=== PATIENT | male | born 1960 | race Caucasian/White ===

== ENCOUNTER 2018-10-11 06:22 | Day surgery (SDC) | payer BC ==
[2018-10-06 18:44] VITALS: BMI 31.8
[~2018-10-11 06:22] MED LIST: LACTATED RINGERS 1,000 ML IV SCH; LIDOCAINE 1% 20 ML VIAL (10MG/ML) FOR IV START INTRADERMA PRN
[2018-10-11] MEDS ORDERED: LACTATED RINGERS 1,000 ML IV ONE (06:38)
[2018-10-11 06:50] VITALS: TEMP 978
[2018-10-11] MEDS ORDERED: PROPOFOL 10 MG/ML 20 ML VIAL IV ONE (07:09)
[2018-10-11 07:10] LABS: Glucose,Whole Blood 144 mg/dL (75-99)
[2018-10-11 07:34] VITALS: PULSE 64; RESP 18
--- NOTE | 2018-10-11 07:39 | P.PCN ---
Date of Procedure: 10/11/18 Procedure(s) Performed: Procedure: Total colonoscopy. Preoperative diagnosis: Screening for neoplasia, patient has history of polyps. Postoperative diagnosis: Sigmoid diverticulosis with no evidence of acute diverticulitis, strictures, polyps or cancer. Preparation: HalfLytely prep. Sedation: Was provided by anesthesia. Brief clinical history: The patient is a 58-year-old male who is scheduled for this evaluation for screening for neoplasia age being his risk factor as well as history of polyps. He had his first exam at age 50 and he had a repeat exam 3 years later. This would be his surveillance because of history of polyps. He has no abdominal complaints, bleeding or anemia. Procedure: With the patient on his left lateral decubitus position and after informed consent and adequate sedation, the perianal area was inspected and it did not show any fissures or fistulas. There were no masses felt on digital rectal examination. The Olympus CFH 190L video colonoscope was then inserted in the rectum in the usual fashion and advanced to the cecum. There were several diverticular orifices seen scattered in the sigmoid with no evidence of acute diverticulitis or strictures. No polyps or tumors were seen. The mucosa appeared healthy. I retroflexed the endoscope in the rectum before the endoscope was withdrawn. The patient tolerated the procedure well. Plan: The patient was reassured. Discussed dietary measures. He will follow up with you as planned and I recommended repeat exam in 5 years.
[2018-10-11 08:13] VITALS: BP 135/90
== END 2018-10-11 08:16 | disposition home or self-care (01) ==
LOC: ORWHC2ENDO 06:22
DX: Z12.11 Encounter for screening for malignant neoplasm of colon (principal); K57.30 Diverticulosis of large intestine without perforation or abscess without bleeding; Z86.010 Personal history of colon polyps; E11.9 Type 2 diabetes mellitus without complications; I10 Essential (primary) hypertension; M10.9 Gout, unspecified; E78.5 Hyperlipidemia, unspecified; K21.9 Gastro-esophageal reflux disease without esophagitis; Z79.84 Long term (current) use of oral hypoglycemic drugs; Z79.82 Long term (current) use of aspirin; Z79.899 Other long term (current) drug therapy
CPT/HCPCS: J2704; G0105

== ENCOUNTER 2019-08-04 07:02 | Emergency (ER) | payer BC ==
[2019-08-04 07:08] VITALS: TEMP 97.9
[2019-08-04] MEDS ORDERED: SODIUM CHLORIDE 0.9% 1,000 ML IV STA (07:12)
[2019-08-04] MEDS ORDERED: KETOROLAC 30 MG/ML 1 ML VIAL IVP STA (07:12)
[2019-08-04] MEDS ORDERED: HYDROmorphone 0.5 MG/0.5 ML SYRINGE IVP STA (07:12)
[2019-08-04] MEDS ORDERED: ONDANSETRON 4 MG/2 ML VIAL IVP STA (07:12)
--- NOTE | 2019-08-04 07:15 | ED ---
Abdominal Pain HPI - General Chief Complaint: Abdominal Pain Stated Complaint: Poss Kidney Stone Time Seen by Provider: 08/04/19 07:08 Source: patient, RN notes reviewed Mode of arrival: ambulatory Limitations: no limitations - History of Present Illness Initial Comments: 58-year-old male presents emergency Department chief complaint left flank pain, hematuria. Patient states that symptoms started last day or so. He states he felt that he just pulled a muscle in his back noticing of blood in his urine yesterday. Patient states he had increasing pain throughout the night with increasing vomiting. Patient states she's had history kidney stones in the past. Patient reports no fevers or chills. Patient denies any diarrhea, constipation, chest pain or shortness breath. - Related Data Home Medications Medication Instructions Recorded Confirmed Gemfibrozil [Lopid] 600 mg PO HS 01/22/17 10/11/18 Allopurinol [Zyloprim] 300 mg PO HS 10/06/18 10/11/18 Aspirin [Adult Low Dose Aspirin EC] 81 mg PO HS 10/06/18 10/11/18 Atorvastatin [Lipitor] 20 mg PO HS 10/06/18 10/11/18 Lisinopril [Zestril] 10 mg PO HS 10/06/18 10/11/18 Multivit-Min/Folic/Vit K/Lycop 1 each PO HS 10/06/18 10/06/18 [Men's Multivitamin Tablet] Omega3/Dha/Epa/Fish Oil/Vit D3 1 each PO HS 10/06/18 10/06/18 [Fish Oil-Vit D3 Softgel] metFORMIN HCL [Glucophage] 1,000 mg PO HS 10/06/18 10/11/18 Previous Rx's Medication Instructions Recorded Ketorolac [Toradol] 10 mg PO Q8HR #15 tab 08/04/19 Ondansetron Odt [Zofran Odt] 4 mg PO Q8HR PRN #10 tab 08/04/19 Tamsulosin [Flomax] 0.4 mg PO DAILY #7 cap 08/04/19 Allergies Allergy/AdvReac Type Severity Reaction Status Date / Time No Known Allergies Allergy Verified 10/11/18 07:05 Review of Systems ROS Statement: Those systems with pertinent positive or pertinent negative responses have been documented in the HPI. ROS Other: All systems not noted in ROS Statement are negative. Past Medical History Past Medical History: Diabetes Mellitus, Hyperlipidemia, Hypertension Additional Past Medical History / Comment(s): GOUT, HX OF COLON POLYPS, kidney stones History of Any Multi-Drug Resistant Organisms: None Reported Past Surgical History: Back Surgery, Orthopedic Surgery Additional Past Surgical History / Comment(s): ARTHROSCOPY AUGUSTIN KNEES AND WRIST., COLONOSCOPIES Past Anesthesia/Blood Transfusion Reactions: No Reported Reaction Past Psychological History: No Psychological Hx Reported Smoking Status: Never smoker Past Alcohol Use History: Occasional Past Drug Use History: None Reported - Past Family History Father Family Medical History: Cancer Additional Family Medical History / Comment(s): LEUKEMIA General Exam Limitations: no limitations General appearance: alert, in no apparent distress Head exam: Present: atraumatic, normocephalic, normal inspection Eye exam: Present: normal appearance, PERRL, EOMI. Absent: scleral icterus, conjunctival injection, periorbital swelling Neck exam: Present: normal inspection, full ROM. Absent: tenderness, meningismus, lymphadenopathy Respiratory exam: Present: normal lung sounds bilaterally. Absent: respiratory distress, wheezes, rales, rhonchi, stridor Cardiovascular Exam: Present: regular rate, normal rhythm, normal heart sounds. Absent: systolic murmur, diastolic murmur, rubs, gallop, clicks GI/Abdominal exam: Present: soft, normal bowel sounds. Absent: distended, tenderness, guarding, rebound, rigid Back exam: Present: full ROM, CVA tenderness (L). Absent: tenderness, CVA tenderness (R) Neurological exam: Present: alert, oriented X3, CN II-XII intact Skin exam: Present: warm, dry, intact, normal color. Absent: rash Course Vital Signs 08/04/19 07:05 Temperature 97.9 F Pulse Rate 72 Respiratory 18 Rate Blood Pressure 167/107 O2 Sat by Pulse 98 Oximetry - Reevaluation(s) Reevaluation #1: 08/04/19 08:23 Patient feels greatly improved after pain medication updated on results. Medical Decision Making - Medical Decision Making Patient's x-ray shows large stone left renal region, labs reveal no acute findings other than hematuria on urinalysis. Patient pain is improved patient be discharged with pain medication, nausea meds, Flomax and follow-up with his urology Dr. Downey - Lab Data Result diagrams: 08/04/19 07:32 08/04/19 07:32 Lab Results 08/04/19 08/04/19 08/04/19 Range/Units 07:32 07:32 07:32 WBC 5.8 (3.8-10.6) k/uL RBC 4.87 (4.30-5.90) m/uL Hgb 15.8 (13.0-17.5) gm/dL Hct 44.8 (39.0-53.0) % MCV 92.0 (80.0-100.0) fL MCH 32.4 (25.0-35.0) pg MCHC 35.2 (31.0-37.0) g/dL RDW 12.3 (11.5-15.5) % Plt Count 250 (150-450) k/uL Neutrophils % 59 % Lymphocytes % 30 % Monocytes % 6 % Eosinophils % 2 % Basophils % 1 % Neutrophils # 3.4 (1.3-7.7) k/uL Lymphocytes # 1.7 (1.0-4.8) k/uL Monocytes # 0.3 (0-1.0) k/uL Eosinophils # 0.1 (0-0.7) k/uL Basophils # 0.0 (0-0.2) k/uL Sodium 139 (137-145) mmol/L Potassium 4.8 (3.5-5.1) mmol/L Chloride 106 (98-107) mmol/L Carbon Dioxide 22 (22-30) mmol/L Anion Gap 11 mmol/L BUN 21 H (9-20) mg/dL Creatinine 0.91 (0.66-1.25) mg/dL Est GFR (CKD-EPI)AfAm >90 (>60 ml/min/1.73 sqM) Est GFR (CKD-EPI)NonAf >90 (>60 ml/min/1.73 sqM) Glucose 210 H (74-99) mg/dL Calcium 9.8 (8.4-10.2) mg/dL Total Bilirubin 0.6 (0.2-1.3) mg/dL AST 32 (17-59) U/L ALT 56 (21-72) U/L Alkaline Phosphatase 84 (38-126) U/L Total Protein 6.7 (6.3-8.2) g/dL Albumin 4.3 (3.5-5.0) g/dL Amylase 58 (30-110) U/L Lipase 87 (23-300) U/L Urine Color Yellow Urine Appearance Clear (Clear) Urine pH 6.0 (5.0-8.0) Ur Specific Hester 1.020 (1.001-1.035) Urine Protein Negative (Negative) Urine Glucose (UA) Negative (Negative) Urine Ketones Negative (Negative) Urine Blood Moderate H (Negative) Urine Nitrite Negative (Negative) Urine Bilirubin Negative (Negative) Urine Urobilinogen <2.0 (<2.0) mg/dL Ur Leukocyte Esterase Negative (Negative) Urine RBC 27 H (0-5) /hpf Urine WBC 2 (0-5) /hpf Ur Squamous Epith Cells <1 (0-4) /hpf Urine Bacteria Rare H (None) /hpf Urine Mucus Rare H (None) /hpf Disposition Clinical Impression: Kidney stone on left side, Hematuria Disposition: HOME SELF-CARE Condition: Stable Instructions (If sedation given, give patient instructions): Kidney Stones (ED) Additional Instructions: Please return to the Emergency Department if symptoms worsen or any other concerns. Prescriptions: Tamsulosin [Flomax] 0.4 mg PO DAILY #7 cap Ketorolac [Toradol] 10 mg PO Q8HR #15 tab Ondansetron Odt [Zofran Odt] 4 mg PO Q8HR PRN #10 tab PRN Reason: Nausea Is patient prescribed a controlled substance at d/c from ED?: No Referrals: Chase Cavanaugh DO [Primary Care Provider] - 1-2 days Woodrow Downey MD [STAFF PHYSICIAN] - 1-2 days Time of Disposition: 08:25
[2019-08-04 07:58] LABS: Appearance,Urine Clear (Clear); Bacteria,Urine Rare /hpf; Bilirubin,Urine Negative (Negative); Blood,Urine Moderate (Negative); Color,Urine Yellow; Glucose,Urine (UA) Negative (Negative); Ketones,Urine Negative (Negative); Leukocyte Esterase,Urine Negative (Negative); Mucus,Urine Rare /hpf; Nitrite,Urine Negative (Negative); Protein,Urine Negative (Negative); RBC,Urine 27 /hpf (0-5); Squamous Epithelial Cell,Urine <1 /hpf (0-4); Urobilinogen,Urine <2.0 mg/dL (<2.0)
[2019-08-04 08:00] LABS: Basophils % (A) 1 %; Eosinophils # (A) 0.1 k/uL (0-0.7); Eosinophils % (A) 2 %; HCT 44.8 % (39.0-53.0); HGB 15.8 gm/dL (13.0-17.5); Lymphocytes # (A) 1.7 k/uL (1.0-4.8); Lymphocytes % (A) 30 %; MCH 32.4 pg (25.0-35.0); MCHC 35.2 g/dL (31.0-37.0); Monocytes # (A) 0.3 k/uL (0-1.0); Monocytes % (A) 6 %; Neutrophils # (A) 3.4 k/uL (1.3-7.7); Neutrophils % (A) 59 %; Platelet Count 250 k/uL (150-450); RBC 4.87 m/uL (4.30-5.90); RDW 12.3 % (11.5-15.5); WBC 5.8 k/uL (3.8-10.6)
--- NOTE | 2019-08-04 08:05 | XR ---
EXAMINATION TYPE: XR KUB DATE OF EXAM: 08/04/2019 8:00 AM CLINICAL HISTORY: Hematuria with history of nephrolithiasis. TECHNIQUE: Single supine KUB image of the abdomen is obtained. COMPARISON: None. FINDINGS: No dilated large or small bowel. Mild degree colonic fecal stasis. Left-sided renal calculu s measures 1.6 cm. Dextroscoliosis of the lumbar spine and mild degenerative change. Lung bases are w ell aerated. IMPRESSION: 1. There is a 1.6 cm left renal calculus. 2. Nonobstructive bowel gas pattern.
[2019-08-04 08:10] LABS: ALT 56 U/L (21-72); AST 32 U/L (17-59); African American GFR (CKD) >90 (>60 ml/min/1.73 sqM); Albumin 4.3 g/dL (3.5-5.0); Alkaline Phosphatase 84 U/L (38-126); Amylase 58 U/L (30-110); Anion Gap 11 mmol/L; Blood Urea Nitrogen 21 mg/dL (9-20); Calcium 9.8 mg/dL (8.4-10.2); Carbon Dioxide 22 mmol/L (22-30); Chloride 106 mmol/L (98-107); Glucose 210 mg/dL (74-99); Non-African American GFR(CKD) >90 (>60 ml/min/1.73 sqM); Potassium 4.8 mmol/L (3.5-5.1); Sodium 139 mmol/L (137-145); Total Bilirubin 0.6 mg/dL (0.2-1.3); Total Protein 6.7 g/dL (6.3-8.2)
[2019-08-04] MEDS ORDERED: ACET/COD 300 MG/30 MG STARTER PACK 6 TAB BTL PO STA (08:25)
[2019-08-04 09:14] VITALS: BP 124/74; PULSE 79; RESP 19
== END 2019-08-04 09:15 | disposition home or self-care (01) ==
LOC: EC 07:02
DX: N20.0 Calculus of kidney (principal); E11.9 Type 2 diabetes mellitus without complications; I10 Essential (primary) hypertension; Z79.82 Long term (current) use of aspirin; Z79.84 Long term (current) use of oral hypoglycemic drugs; Z79.899 Other long term (current) drug therapy
CPT/HCPCS: 36415; 74018; 80053; 81001; 82150; 83690; 85025; 96361; 96374; 96375; 99284

== ENCOUNTER → 2019-08-09 | Outpatient (CLI) | payer BC ==
[2019-08-09 13:18] LABS: Basophils # (A) 0.1 k/uL (0-0.2); Basophils % (A) 1 %; Eosinophils # (A) 0.1 k/uL (0-0.7); Eosinophils % (A) 2 %; HGB 15.7 gm/dL (13.0-17.5); Lymphocytes # (A) 1.1 k/uL (1.0-4.8); Lymphocytes % (A) 19 %; MCH 31.3 pg (25.0-35.0); MCHC 33.5 g/dL (31.0-37.0); MCV 93.6 fL (80.0-100.0); Mean Platelet Volume 7.4; Monocytes # (A) 0.5 k/uL (0-1.0); Monocytes % (A) 8 %; Neutrophils # (A) 4.2 k/uL (1.3-7.7); Neutrophils % (A) 69 %; Platelet Count 240 k/uL (150-450); RBC 5.02 m/uL (4.30-5.90); RDW 11.9 % (11.5-15.5); WBC 6.1 k/uL (3.8-10.6)
== END | disposition home or self-care (01) ==
LOC: LABPAT 12:35
PROVIDERS: ATTEND Urology
DX: Z01.812 Encounter for preprocedural laboratory examination (principal); N20.0 Calculus of kidney
CPT/HCPCS: 36415; 85025; 86850; 86900; 86901

== ENCOUNTER → 2019-08-09 | Outpatient (CLI) | payer BC ==
--- NOTE | 2019-08-09 12:57 | CT ---
EXAMINATION TYPE: CT abdomen pelvis wo con DATE OF EXAM: 08/09/2019 COMPARISON: Abdominal KUB 08/04/2019 HISTORY: known kidney stone CT DLP: 862 mGycm Automated exposure control for dose reduction was used. TECHNIQUE: Helical acquisition of images was performed from the lung bases through the pelvis. FINDINGS: LUNG BASES: No significant abnormality is appreciated. LIVER/GB: Liver is mildly reduced in attenuation correlate with liver function studies for hepatic st eatosis. Single hepatic granuloma within the left lobe noted. PANCREAS: No significant abnormality is seen. SPLEEN: No significant abnormality is seen. ADRENALS: No significant abnormality is seen. KIDNEYS: There is moderate left hydronephrosis with a 1.4 cm UPJ calcification. There is an additional proxima l ureteral calculus measuring 4 mm. Mild perinephric stranding noted. Low density within the mid posterior cortex of the right kidney indeterminate by noncontrast techniqu e. No definite right-sided renal calculi. ADENOPATHY: None visualized. OSSEOUS STRUCTURES: Hypertrophic and degenerative change of the vertebral column with most marked fi ndings at L5-S1. Vacuum disc and severe degenerative disc disease with bilateral significant foramina l encroachment. Tiny sclerotic foci in the femoral heads are suggestive of bone island. Additional sc lerotic focus proximal right femoral diaphysis also suggestive of bone island. BOWEL: Bowel gas pattern nonspecific. Appendix normal. Occasional diverticula noted. OTHER: Small fat-containing periumbilical hernia. Aorta of normal caliber. No free fluid. Prostate ca lcification seen. IMPRESSION: 1. Moderate left hydronephrosis with a 1.4 cm left renal pelvic calcification. Additional proximal le ft ureteral calculus measuring 4 mm. No evidence of right-sided renal calculi. 2. Correlate with liver function studies for hepatic steatosis or hepatocellular disease.
== END ==
LOC: RADCTMAIN 12:14
PROVIDERS: ATTEND Urology
DX: N13.2 Hydronephrosis with renal and ureteral calculous obstruction (principal)
CPT/HCPCS: 74176

== ENCOUNTER 2019-08-12 10:36 | Observation (INO) | payer BC ==
[2019-08-10 11:14] VITALS: BMI 31.2
--- NOTE | 2019-08-11 19:57 | P.GSHP ---
History of Present Illness H&P Date: 08/11/19 58 yo male with 3 weeks of left flank pain and gross hematuria He was evaluated with a ct scan and this identified a 16 mm left upj stone. The was evaluated by me We discussed all the treatment options He comes for a left pcnl the risks and complications have been discussed. - Constitutional Constitutional: Denies chills, Denies fever - EENT Eyes: denies blurred vision, denies pain Ears, nose, mouth and throat: Denies headache, Denies sore throat - Cardiovascular Cardiovascular: Denies chest pain, Denies shortness of breath - Respiratory Respiratory: Denies cough, Denies 7 - Gastrointestinal Gastrointestinal: Denies abdominal pain, Denies diarrhea, Denies nausea, Denies vomiting - Genitourinary (Female) Genitourinary: Denies dysuria, Denies hematuria - Genitourinary (Male) Genitourinary: Denies dysuria, Denies hematuria - Musculoskeletal Musculoskeletal: Denies myalgias - Integumentary Integumentary: Denies pruritus, Denies rash - Neurological Neurological: Denies numbness, Denies weakness - Psychiatric Psychiatric: Denies anxiety, Denies depression - Endocrine Endocrine: Denies fatigue, Denies weight change Past Medical History Past Medical History: Diabetes Mellitus, GERD/Reflux, Hyperlipidemia, Hypertension Additional Past Medical History / Comment(s): GOUT, kidney stones, History of Any Multi-Drug Resistant Organisms: None Reported Past Surgical History: Back Surgery, Orthopedic Surgery Additional Past Surgical History / Comment(s): ARTHROSCOPY AUGUSTIN KNEES , left WRIST surgery., COLONOSCOPIES Past Anesthesia/Blood Transfusion Reactions: No Reported Reaction Smoking Status: Never smoker - Past Family History Father Family Medical History: Cancer Additional Family Medical History / Comment(s): LEUKEMIA Medications and Allergies Home Medications Medication Instructions Recorded Confirmed Type Gemfibrozil [Lopid] 600 mg PO HS 01/22/17 08/10/19 History Allopurinol [Zyloprim] 300 mg PO HS 10/06/18 08/10/19 History Aspirin [Adult Low Dose Aspirin EC] 81 mg PO HS 10/06/18 08/10/19 History Atorvastatin [Lipitor] 20 mg PO HS 10/06/18 08/10/19 History Lisinopril [Zestril] 10 mg PO HS 10/06/18 08/10/19 History Multivit-Min/Folic/Vit K/Lycop 1 each PO HS 10/06/18 08/10/19 History [Men's Multivitamin Tablet] Omega3/Dha/Epa/Fish Oil/Vit D3 1 each PO HS 10/06/18 08/10/19 History [Fish Oil-Vit D3 Softgel] metFORMIN HCL [Glucophage] 500 mg PO HS 10/06/18 08/10/19 History Ketorolac [Toradol] 10 mg PO Q8HR #15 tab 08/04/19 08/10/19 Rx Ondansetron Odt [Zofran Odt] 4 mg PO Q8HR PRN #10 tab 08/04/19 08/10/19 Rx Tamsulosin [Flomax] 0.4 mg PO DAILY #7 cap 08/04/19 08/10/19 Rx Allergies Allergy/AdvReac Type Severity Reaction Status Date / Time No Known Allergies Allergy Verified 08/10/19 11:07 Surgical - Exam - General well developed, well nourished, no distress - Eyes PERRL - ENT no hearing loss - Neck trachea midline - Respiratory normal expansion, normal respiratory effort - Cardiovascular Rhythm: regular - Abdomen Abdomen: soft, non tender - Genitourinary normal penis with no external lesions, testicles present - Integumentary no rash, no growths - Neurologic normal coordination, normal sensation - Musculoskeletal normal gait, normal posture - Psychiatric oriented to time, oriented to person, oriented to place, speech is normal, memory intact Results - Imaging CT scan - abdomen: report reviewed, image reviewed CT scan - pelvis: report reviewed, image reviewed Assessment and Plan Assessment: Impression: Left renal stone Plan: Left PCNL
[~2019-08-12 10:36] MED LIST changes: +DEXAMETHASONE SOD PHOSPHATE 10 MG/ML 1 ML VIAL IV ONE; +HYDROmorphone 0.5 MG/0.5 ML SYRINGE IVP PRN; -LACTATED RINGERS 1,000 ML IV SCH; +ONDANSETRON 4 MG/2 ML VIAL IVP ONE; +ONDANSETRON 4 MG/2 ML VIAL IVP PRN
--- NOTE | 2019-08-12 11:14 | XR ---
KUB HISTORY: Kidney stone , KUB and [address] scan 08/09/2019, KUB 08/04/2019 There is a calcification overlying the left renal pelvis measuring approximately 2 cm. No evident pne umoperitoneum or bowel obstruction. There is a calcification at the level of the right acetabulum whi ch shows a stable appearance. IMPRESSION: Left nephrolithiasis.
[2019-08-12 11:18] LABS: Glucose,Whole Blood 123 mg/dL (75-99)
[2019-08-12] MEDS: LACTATED RINGERS 1,000 ML IV SCH (11:22)
[2019-08-12] MEDS ORDERED: HYDROmorphone (PF) 1 MG/ML ONE (12:05)
[2019-08-12] MEDS ORDERED: LIDOCAINE 1% INJ 10MG/ML (20 ML MDV) ONE (12:05)
[2019-08-12] MEDS ORDERED: PROPOFOL 10 MG/ML 20 ML VIAL IV ONE (12:05)
[2019-08-12] MEDS ORDERED: MIDAZOLAM 2 MG/2 ML VIAL ONE (12:05)
[2019-08-12] MEDS ORDERED: SUCCINYLCHOLINE CHLORIDE 100 MG/5 ML SYR IV ONE (12:05)
[2019-08-12] MEDS ORDERED: ROCURONIUM BROMIDE 10 MG/ML 10 ML VIAL IV ONE (12:05)
[2019-08-12] MEDS ORDERED: fentaNYL (PF) 50 MCG/ML 2 ML AMP ONE (12:05)
[2019-08-12] MEDS ORDERED: IOPAMIDOL-370 50ML BTL MISCELLANE ONE ×2 (12:51)
[2019-08-12] MEDS ORDERED: ACETAMINOPHEN TAB 325 MG TAB PO PRN (13:34)
[2019-08-12] MEDS ORDERED: ONDANSETRON 4 MG/2 ML VIAL IVP PRN (13:34)
[2019-08-12] MEDS ORDERED: MAG HYDROX/AL HYDROX/SIMETH 30 ML CUP PO PRN (13:34)
[2019-08-12] MEDS ORDERED: HYDROmorphone PCA 10 MG/50 ML BAG IV PRN (13:36)
[2019-08-12] MEDS ORDERED: NALOXONE 0.4 MG/ML 1 ML VIAL IV PRN (13:36)
--- NOTE | 2019-08-12 13:41 | P.OP ---
Date of Procedure: 08/12/19 Preoperative Diagnosis: left renal stone, large Postoperative Diagnosis: same Procedure(s) Performed: cystoscopy, placement of occluding balloon catheter left, percutaneous nephrostomy (Dr. Platt) percutaneous nephrostolithotomy with ultrasound, placement of 10 J nephrostomy Anesthesia: LYUBOV Surgeon: Woodrow Downey Estimated Blood Loss (ml): 50 Pathology: other (stone) Condition: stable Disposition: PACU Indications for Procedure: the patient is 58. He presented with flank pain and hematuria for 3 weeks. He is found of a large stone in the renal pelvis on computed tomography scan. He comes for percutaneous nephrostolithotomy. The stone measures 2 cm on KUB today. Description of Procedure: patient brought operating suite. He is given a general endotracheal anesthesia on the transport gurney. He's placed in a frog position with sterile prep and drape. Rolls were placed under his hips. Cystoscopy a Foroblique lens and 22- Dutch sheath identifies a normal urethra. The bladder neck slightly obstructing. I entered the bladder and the left ureteral orifice is identified and intubated with a 5-Dutch occluding balloon catheter passed up into the renal pelvis. It is secured to a 16-Dutch coud-tip catheter. The patient's placed in prone position with care to airways and extremities. A sterile prep and drape was administered. Dr. Platt of radiology performed percutaneous access to a midpole calyx sitting between the 12th and 11th rib. I dilate the tract to 30-Dutch and advance the sheath into the collecting system. Blood clot is removed. The stone requires ultrasound to break it up as it is quite large. The stone was ground and suctioned out and the larger fragments were grasped and removed with the grasping forceps. Then of the procedure there is no remaining fragments up. The UPJ is clear. Over a working wires passed a 10-Dutch J nephrostomy that coils in the renal pelvis. It is secured the skin with 2-0 silk. The patient's awake and returned recovery room good condition. Blood loss is approximately 50 mL. He placed in the hospital postoperatively.
--- NOTE | 2019-08-12 14:55 | FL ---
EXAMINATION TYPE: FL Perc Nephrostomy New Access DATE OF EXAM: 08/12/2019 COMPARISON: CT 08/09/2019, plain film 08/12/2019 HISTORY: Left renal calculus PROCEDURE: Maximal barrier technique was utilized. The skin overlying the left kidney was localized using fluor oscopy and the overlying skin prepped and draped. Lidocaine used for local anesthesia. Skin sadi wa s made with a scalpel. Access was gained under fluoroscopy, following placement of a ureteral occlus ion balloon by the referring clinician and instillation of air in the renal collecting system with a 21-gauge needle to the kidney. A suitable posterior calyx was chosen. A 0.018 inch wire was advanc ed. The access site was dilated and subsequently a sheath was advanced into the renal pelvis followi ng dilation with balloon along the tract. Urine returned in the hub of the catheter. The patient unde rwent nephrolithotomy by the referring clinician. The patient remained in stable condition without complication. The patient was discharged to observation. 1 minute 36 seconds fluoroscopy time, single intraoperative image documents the procedure IMPRESSION: STATUS POST NEPHROSTOMY PLACEMENT FOR NEPHROLITHOTOMY WITH FLUOROSCOPIC GUIDANCE. THIS PROCEDURE PER FORMED BY THE UNDERSIGNED.
[2019-08-12] MEDS: KETOROLAC 30 MG/ML 1 ML VIAL IVP SCH ×3 (16:16→16:49)
[2019-08-12] MEDS: SODIUM CHLORIDE 0.45% 1,000 ML IV SCH (16:16)
[2019-08-12 17:18] LABS: Glucose,Whole Blood 155 mg/dL (75-99)
[2019-08-12 20:26] LABS: Glucose,Whole Blood 214 mg/dL (75-99)
[2019-08-12] MEDS ORDERED: FENOFIBRATE 160 MG TAB PO SCH (21:00)
[2019-08-12] MEDS ORDERED: metFORMIN 500 MG TAB PO SCH (21:00)
[2019-08-12] MEDS ORDERED: ALLOPURINOL 300 MG TAB PO SCH (21:00)
[2019-08-12] MEDS ORDERED: LISINOPRIL 10 MG TAB PO SCH (21:00)
[2019-08-12] MEDS ORDERED: ATORVASTATIN 20 MG TAB PO SCH (21:00)
[2019-08-13] MEDS: KETOROLAC 30 MG/ML 1 ML VIAL IVP SCH ×3 (00:16→15:31)
[2019-08-13] MEDS: SODIUM CHLORIDE 0.45% 1,000 ML IV SCH (00:18)
[2019-08-13] MEDS: LACTATED RINGERS 1,000 ML IV SCH (02:46)
[2019-08-13 07:14] LABS: Glucose,Whole Blood 112 mg/dL (75-99)
--- NOTE | 2019-08-13 10:18 | P.DS ---
Providers Date of admission: 08/12/19 19:44 Attending physician: Woodrow Downey Primary care physician: [facility] Course: the patient was admitted 08/12/2019 for a left percutaneous nephrostolithotomy to a large renal stone. He has done well. His urine cleared overnight. His pain is under control. He'll be discharged home today. He'll be discharged home on regular diet limited activity with a nephrostomy tube. A follow-up on 08/16/2019 for nephrostomy tube removal. He'll resume his home medications. He will be given a prescription for oral. Postoperative instructions been given. He understands these. Condition is good. Patient Condition at Discharge: Good Plan - Discharge Summary Discharge Rx Participant: No New Discharge Prescriptions: New Ketorolac [Toradol] 10 mg PO Q6HR #10 tab No Action Gemfibrozil [Lopid] 600 mg PO HS Lisinopril [Zestril] 10 mg PO HS metFORMIN HCL [Glucophage] 500 mg PO HS Atorvastatin [Lipitor] 20 mg PO HS Allopurinol [Zyloprim] 300 mg PO HS Omega3/Dha/Epa/Fish Oil/Vit D3 [Fish Oil-Vit D3 Softgel] 1 each PO HS Multivit-Min/Folic/Vit K/Lycop [Men's Multivitamin Tablet] 1 each PO HS Aspirin [Adult Low Dose Aspirin EC] 81 mg PO HS Tamsulosin [Flomax] 0.4 mg PO DAILY #7 cap Ketorolac [Toradol] 10 mg PO Q8HR #15 tab Ondansetron Odt [Zofran Odt] 4 mg PO Q8HR PRN #10 tab PRN Reason: Nausea Discharge Medication List Gemfibrozil [Lopid] 600 mg PO HS 01/22/17 [History] Allopurinol [Zyloprim] 300 mg PO HS 10/06/18 [History] Aspirin [Adult Low Dose Aspirin EC] 81 mg PO HS 10/06/18 [History] Atorvastatin [Lipitor] 20 mg PO HS 10/06/18 [History] Lisinopril [Zestril] 10 mg PO HS 10/06/18 [History] Multivit-Min/Folic/Vit K/Lycop [Men's Multivitamin Tablet] 1 each PO HS 10/06/18 [History] Omega3/Dha/Epa/Fish Oil/Vit D3 [Fish Oil-Vit D3 Softgel] 1 each PO HS 10/06/18 [History] metFORMIN HCL [Glucophage] 500 mg PO HS 10/06/18 [History] Ketorolac [Toradol] 10 mg PO Q8HR #15 tab 08/04/19 [Rx] Ondansetron Odt [Zofran Odt] 4 mg PO Q8HR PRN #10 tab 08/04/19 [Rx] Tamsulosin [Flomax] 0.4 mg PO DAILY #7 cap 08/04/19 [Rx] Ketorolac [Toradol] 10 mg PO Q6HR #10 tab 08/13/19 [Rx] Follow up Appointment(s)/Referral(s): Woodrow Downey MD [STAFF PHYSICIAN] - 08/16/19 Activity/Diet/Wound Care/Special Instructions: home with nephrostomy tube
[2019-08-13 17:47] LABS: Glucose,Whole Blood 137 mg/dL (75-99)
[2019-08-13 18:03] VITALS: RESP 16; TEMP 98
[2019-08-13 18:04] VITALS: BP 120/78; PULSE 62
== END 2019-08-13 19:30 | disposition home or self-care (01) ==
LOC: OR 10:36 → 4SSUR 14:07 → OR 19:43 → 4SSUR 19:44
PROVIDERS: ADMIT Urology; ATTEND Urology
DX: N20.0 Calculus of kidney (principal); E11.9 Type 2 diabetes mellitus without complications; K21.9 Gastro-esophageal reflux disease without esophagitis; E78.5 Hyperlipidemia, unspecified; I10 Essential (primary) hypertension; M10.9 Gout, unspecified; Z98.890 Other specified postprocedural states; Z79.899 Other long term (current) drug therapy; Z79.82 Long term (current) use of aspirin; Z79.84 Long term (current) use of oral hypoglycemic drugs; Z80.6 Family history of leukemia
CPT/HCPCS: 86900; 86901; 86850; 82365; 50432; 74018; 50080; G0378 ×2; C1769 ×3; C2628; C1894; C1729; J2250; J1100; J0690; J2405; J2001; J3010; J1170 ×3; J0330; J2704; Q9967

== ENCOUNTER → 2019-10-14 | Outpatient (CLI) | payer BC | END | disposition home or self-care (01) | LOC: LABWHC1 10:20 | PROVIDERS: ATTEND Urology | DX: R97.20 Elevated prostate specific antigen [PSA] (principal) | CPT/HCPCS: 36415; 84153 ==

== ENCOUNTER → 2020-03-09 | Outpatient (CLI) | payer BC ==
[2020-03-09 10:46] LABS: MCH 30.8 pg (25.0-35.0); MCHC 33.2 g/dL (31.0-37.0); MCV 92.6 fL (80.0-100.0); Mean Platelet Volume 7.3; Platelet Count 229 k/uL (150-450); RBC 5.18 m/uL (4.30-5.90); RDW 12.4 % (11.5-15.5); WBC 6.3 k/uL (3.8-10.6)
[2020-03-09 15:35] LABS: African American GFR (CKD) 113.3 (60.0-200.0); Anion Gap 9.2 mmol/L (4.00-12.00); Calcium 9.6 mg/dL (8.7-10.3); Carbon Dioxide 26.8 mmol/L (21.6-31.8); Non-African American GFR(CKD) 97.8 (60.0-200.0); Potassium 4.4 mmol/L (3.5-5.5); Uric Acid 5.1 mg/dL (3.7-8.7)
[2020-03-09 17:46] LABS: Hemoglobin A1C 8.2 % (4.0-6.0)
== END | disposition home or self-care (01) ==
LOC: LABWHC1 09:02
PROVIDERS: ATTEND Family Medicine
DX: E78.5 Hyperlipidemia, unspecified (principal); M10.9 Gout, unspecified; E11.9 Type 2 diabetes mellitus without complications; I10 Essential (primary) hypertension
CPT/HCPCS: 36415; 80048; 83036; 84450; 84460; 84550; 85027

== ENCOUNTER → 2023-11-23 | Outpatient (CLI) | payer BC, OTHER ==
--- NOTE | 2023-11-23 13:36 | XR ---
EXAMINATION TYPE: XR KUB DATE OF EXAM: 11/23/2023 COMPARISON: 08/12/2019 HISTORY: Right flank pain TECHNIQUE: One view abdominal series FINDINGS: The osseous structures are intact. Hypertrophic degenerative changes spine. Arthropathy of the hips. Soft tissue ossification along the medial margin of the right hip. The bowel gas pattern is nonspeci fic. Lung bases are clear. Right kidney: Mildly limited due to bowel content but no obvious calcifications. No suspicious calcif ications along the right paraspinal line. Left kidney: No suspicious calcifications. Interval resolution of large left renal pelvic calcificati on. Pelvis: Punctate peripheral calcifications are likely vascular. IMPRESSION: 1. Nonspecific abdomen. No suspicious calcifications.
== END | disposition home or self-care (01) ==
LOC: RADXRMAIN 13:06
PROVIDERS: ATTEND Urology
DX: N20.0 Calculus of kidney (principal); R10.9 Unspecified abdominal pain
CPT/HCPCS: 74018